=== PATIENT | male | born 1990 | race Caucasian/White ===

== ENCOUNTER 2021-08-07 09:14 | Day surgery (SDC) | payer SELFPAY ==
[~2021-08-07] VITALS: Ht 183 cm; Wt 143.0 kg
[2021-08-07] VITALS (9 sets, daily range): BP systolic 113–159; BP diastolic 76–95
[~2021-08-07 09:14] MED LIST: CEPH500C PO; CIPR500T78 PO; DOXY100C2 PO; HCA25SU PR; HYDR1TAB PO; METR500T PO; NAPR-243 PO; PRM25T PO; TRM50T PO
--- NOTE | 2021-08-07 09:41 | ED Abdominal Pain ---
General Chief Complaint: Abdominal/GI Problems Stated Complaint: VOMITING Source of Information: Patient Exam Limitations: No Limitations History of Present Illness Date Seen by Provider: Aug 07, 2021 Time Seen by Provider: 09:35 Initial Comments Patient is a 31-year-old male who presents to the emergency department today with a chief complaint of epigastric, right upper quadrant abdominal pain onset this morning when he woke up. He has been vomiting all morning. Has a feeling of fullness like he is bloated. Had a similar episode about 4 years ago however the pain did not last as long. He states at that time once he threw up he felt significantly better. No issues in the past that he is aware of with his ga llbladder. He states he is not vomiting up any blood. No recent fevers or chills. Had a normal bowel movement this morning. No problems with urination. The pain does not radiate. He states it is right at the end of his sternum and a little bit to the right and left of it. Nothing makes it any better or any worse. He did try a little Pepto this morning and vomited it up. His only medication is a daily vitamin. No allergies to medications. All other review of systems reviewed and negative except as stated Timing/Duration: 1-3 Hours Severity/Quality: Severe, Aching, Cramping, Full Location: RUQ, Epigastric Radiation: No Radiation Activities at Onset: Sleeping Associated Symptoms: Nausea/Vomiting Allergies and Home Medications Allergies Coded Allergies: No Known Allergies (Unverified Allergy, Mild, 12/12/08) Patient Home Medication List Home Medication List Reviewed: Yes Ciprofloxacin HCl (Cipro) 500 Mg Tablet, 500 MG PO BID Prescribed by: ELMER WILLIAMSON on 05/07/13 0432 Metronidazole (Flagyl 500 Mg) 500 Mg Tab, 500 MG PO BID, (Reported) Entered as Reported by: JOE CARRANZA on 05/12/13 1158 Review of Systems Review of Systems Constitutional: see HPI EENTM: No Symptoms Reported Respiratory: No Symptoms Reported Cardiovascular: No Symptoms Reported Gastrointestinal: Abdominal Pain, Nausea, Vomiting Genitourinary: No Symptoms Reported Musculoskeletal: no symptoms reported Skin: no symptoms reported All Other Systems Reviewed Negative Unless Noted: Yes Past [place]-N[place]ed-Nkbxjh Hx Past Medical History Reproductive Disorders: No Sexually Transmitted Disease: No HIV/AIDS: No Adverse Reaction/Blood Tranf: No Family Medical History Diabetes, GI Disease Physical Exam Vital Signs Vital Signs - First Documented 08/07/21 09:20 Temp 36.0 Pulse 62 Resp 18 B/P (MAP) 159/95 (116) Pulse Ox 98 O2 Delivery Room Air Capillary Refill : Height/Weight/BMI Height: '" Weight: 325lbs. oz. 147.026447lh; BMI Method:Stated General Appearance: WD/WN, mild distress HEENT: PERRL/EOMI Respiratory: lungs clear, normal breath sounds, no respiratory distress, no accessory muscle use Cardiovascular: regular rate, rhythm Gastrointestinal: soft; No distended, No guarding; tenderness (Epigastric and right upper quadrant tenderness. Positive Valenzuela sign. Slight tenderness in the left upper quadrant.); No mass, No hepatomegaly Extremities: normal range of motion, non-tender, normal inspection Neurologic/Psychiatric: alert, normal mood/affect, oriented x 3 Skin: diaphoresis, pallor Progress/Results/Core Measures Results/Orders Lab Results Laboratory Tests Test 08/07/21 09:30 Range/Units White Blood Count 9.2 4.3-11.0 10^3/uL Red Blood Count 4.58 4.30-5.52 10^6/uL Hemoglobin 13.8 13.3-17.7 g/dL Hematocrit 42 40-54 % Mean Corpuscular Volume 91 80-99 fL Mean Corpuscular Hemoglobin 30 25-34 pg Mean Corpuscular Hemoglobin Concent 33 32-36 g/dL Red Cell Distribution Width 12.4 10.0-14.5 % Platelet Count 240 130-400 10^3/uL Mean Platelet Volume 9.7 9.0-12.2 fL Immature Granulocyte % (Auto) 0 % Neutrophils (%) (Auto) 84 H 42-75 % Lymphocytes (%) (Auto) 10 L 12-44 % Monocytes (%) (Auto) 5 0-12 % Eosinophils (%) (Auto) 0 0-10 % Basophils (%) (Auto) 0 0-10 % Neutrophils # (Auto) 7.7 1.8-7.8 10^3/uL Lymphocytes # (Auto) 0.9 L 1.0-4.0 10^3/uL Monocytes # (Auto) 0.5 0.0-1.0 10^3/uL Eosinophils # (Auto) 0.0 0.0-0.3 10^3/uL Basophils # (Auto) 0.0 0.0-0.1 10^3/uL Immature Granulocyte # (Auto) 0.0 0.0-0.1 10^3/uL Sodium Level 142 135-145 MMOL/L Potassium Level 4.0 3.6-5.0 MMOL/L Chloride Level 107 98-107 MMOL/L Carbon Dioxide Level 22 21-32 MMOL/L Anion Gap 13 5-14 MMOL/L Blood Urea Nitrogen 23 H 7-18 MG/DL Creatinine 0.81 0.60-1.30 MG/DL Estimat Glomerular Filtration Rate 121 BUN/Creatinine Ratio 28 Glucose Level 139 H 70-105 MG/DL Calcium Level 8.9 8.5-10.1 MG/DL Corrected Calcium 8.9 8.5-10.1 MG/DL Total Bilirubin 0.4 0.1-1.0 MG/DL Aspartate Amino Transf (AST/SGOT) 23 5-34 U/L Alanine Aminotransferase (ALT/SGPT) 26 0-55 U/L Alkaline Phosphatase 68 40-136 U/L Total Protein 6.9 6.4-8.2 GM/DL Albumin 4.0 3.2-4.5 GM/DL Lipase 136 H 8-78 U/L My Orders Orders - JANIE HOANG MD Ed Iv/Invasive Line Start (08/07/21 09:35) Cbc With Automated Diff (08/07/21 09:35) Comprehensive Metabolic Panel (08/07/21 09:35) Lipase (08/07/21 09:35) Ondansetron Injection (Zofran Injectio (08/07/21 09:45) Ns Iv 1000 Ml (Sodium Chloride 0.9%) (08/07/21 09:45) Dicyclomine Injection (Bentyl Injection) (08/07/21 09:46) Us Gallbladder [id number] (08/07/21 10:54) Fentanyl Inj (Sublimaze Injection) (08/07/21 12:30) Medications Given in ED Current Medications Medications Dose Ordered Sig/Daily Route Start Time Stop Time Status Last Admin Dose Admin Fentanyl Citrate 50 mcg ONCE ONCE IVP 08/07/21 11:15 08/07/21 11:16 DC 08/07/21 11:15 50 MCG Fentanyl Citrate 50 mcg ONCE ONCE IVP 08/07/21 12:30 08/07/21 12:31 DC 08/07/21 12:26 50 MCG Ondansetron HCl 8 mg ONCE ONCE IVP 08/07/21 09:45 08/07/21 09:46 DC 08/07/21 09:59 8 MG Vital Signs/I&O 08/07/21 08/07/21 08/07/21 09:20 11:15 12:26 Temp 36.0 36.0 36.0 Pulse 62 Resp 18 B/P (MAP) 159/95 (116) Pulse Ox 98 O2 Delivery Room Air Progress Progress Note #1: Time: 11:57 Progress Note Case discussed with Dr Clemons; will be down to see in ED Progress Note #2: Time: 13:[address] Clemons was down to see patient. Will keep for lap Leigha. Diagnostic Imaging Diagonstic Imaging: Ultrasound Plain Films/CT/US/NM/MRI: abdomen Comments [facility], [place] NAME: [facility] REC#: [id number] PT STATUS: REG ER : 1990 PHYSICIAN: JANIE HOANG MD ADMIT DATE: 08/07/21/ER Draft Date of Exam:08/07/21 US GALLBLADDER [id number] PROCEDURE: US Gallbladder. TECHNIQUE: Multiple real-time grayscale images were obtained over the right upper quadrant in various projections. INDICATION: Right upper quadrant pain with nausea and vomiting. COMPARISON: None available. FINDINGS: The liver is normal in size and echogenicity. There is no focal hepatic mass. The main portal vein is patent with antegrade flow. There is layering sludge and a large echogenic stone within the gallbladder. No pericholecystic fluid or gallbladder wall thickening. The common bile duct measures up to 0.6 cm in diameter. No intrahepatic biliary dilation. The visualized portions of the pancreas are normal. Portions of the head and tail are obscured by overlying bowel gas. The right kidney is normal in size. No hydronephrosis, shadowing calculi, or suspicious mass lesion. IMPRESSION: 1. Cholelithiasis with positive sonographic Valenzuela's sign. These features are suggestive of acute cholecystitis. However, there is no gallbladder wall thickening or pericholecystic fluid. 2. If additional imaging is warranted, then nuclear medicine HIDA scan could be performed to assess for cystic duct patency. Dictated on workstation # [id number] Dict: 08/07/21 1158 Trans: 08/07/[address] [facility] [id number] Interpreted by: CHARLES CALZADA MD Electronically signed by: Departure Communication (Admissions) Time/Spoke to Admitting Phy: 11:[address] Clemons Impression Primary Impression: Abdominal pain Qualified Codes: R10.13 - Epigastric pain Additional Impression: Acute cholecystitis Disposition: ADMITTED INPATIENT Condition: Stable Admissions Decision to Admit Reason: Admit from ER (General) Decision to Admit/Date: Aug 07, 2021 Time/Decision to Admit Time: 12:30 Departure-Patient Inst. Referrals: NABILA MEJIA MD (PCP/Family) Primary Care Physician JANIE HOANG MD Aug 07, 2021 09:41
[2021-08-07 09:44] LABS: BASOPHILS % (AUTO) 0 % (0-10); EOSINOPHILS % (AUTO) 0 % (0-10); HEMATOCRIT 42 % (40-54); HEMOGLOBIN 13.8 g/dL (13.3-17.7); LYMPHOCYTES # (AUTO) 0.9 10^3/uL (1.0-4.0); LYMPHOCYTES % (AUTO) 10 % (12-44); MEAN CORPUSCULAR HEMOGLOBIN 30 pg (25-34); MEAN CORPUSCULAR HGB CONC 33 g/dL (32-36); MEAN CORPUSCULAR VOLUME 91 fL (80-99); MEAN PLATELET VOLUME 9.7 fL (9.0-12.2); MONOCYTES # (AUTO) 0.5 10^3/uL (0.0-1.0); MONOCYTES % (AUTO) 5 % (0-12); NEUTROPHILS # (AUTO) 7.7 10^3/uL (1.8-7.8); NEUTROPHILS % (AUTO) 84 % (42-75); PLATELET COUNT 240 10^3/uL (130-400); WHITE BLOOD COUNT 9.2 10^3/uL (4.3-11.0)
[2021-08-07] MEDS ORDERED: ONDANSETRON 4 MG/2 ML (SDV) Z0FRAN IVP ONE (09:45)
[2021-08-07] MEDS ORDERED: NS IV 1000 ML 1,000 ML IV SCH (09:45)
[2021-08-07] MEDS ORDERED: DICYCLOMINE 10 MG/ML (BENTYL) 2 ML AMP IM STA (09:46)
[2021-08-07 09:59] LABS: CALCIUM 8.9 MG/DL (8.5-10.1)
[2021-08-07 10:01] LABS: TOTAL PROTEIN 6.9 GM/DL (6.4-8.2)
[2021-08-07 10:02] LABS: BILIRUBIN,TOTAL 0.4 MG/DL (0.1-1.0)
[2021-08-07 10:04] LABS: CREATININE SERUM 0.81 MG/DL (0.60-1.30)
[2021-08-07] MEDS ORDERED: fentaNYL INJ 100 MCG/2 ML AMP IVP ONE ×5 (11:15→17:45)
--- NOTE | 2021-08-07 12:04 | Diagnostic Imaging Report ---
PROCEDURE: US Gallbladder. TECHNIQUE: Multiple real-time grayscale images were obtained over the right upper quadrant in various projections. INDICATION: Right upper quadrant pain with nausea and vomiting. COMPARISON: None available. FINDINGS: The liver is normal in size and echogenicity. There is no focal hepatic mass. The main portal vein is patent with antegrade flow. There is layering sludge and a large echogenic stone within the gallbladder. No pericholecystic fluid or gallbladder wall thickening. The common bile duct measures up to 0.6 cm in diameter. No intrahepatic biliary dilation. The visualized portions of the pancreas are normal. Portions of the head and tail are obscured by overlying bowel gas. The right kidney is normal in size. No hydronephrosis, shadowing calculi, or suspicious mass lesion. IMPRESSION: 1. Cholelithiasis with positive sonographic Valenzuela's sign. These features are suggestive of acute cholecystitis. However, there is no gallbladder wall thickening or pericholecystic fluid. 2. If additional imaging is warranted, then nuclear medicine HIDA scan could be performed to assess for cystic duct patency. Dictated by: Dictated on workstation # [id number]
[2021-08-07] MEDS ORDERED: morphine INJ 10 MG/ML 1ML (SYR OR VIAL) IVP STA (13:11)
--- NOTE | 2021-08-07 13:14 | History & Physical-Surgical ---
ALIYAH FELICIANO 08/07/21 1314: History of Present Illness History of Present Illness Reason for visit/HPI Patient is a 31 year old male who is currently at [facility] ER with compalints up RUQ abdominal pain. Patient states that the pain woke him up around 0530. He was attempted to get ready for work when he began having nausea and multiple episodes of emesis. Patient states that he has had one episode of pain like this previously a year ago, where he vomited and the pain cleared up. The pain is located along the right anterior costal margins and radiates from distal sternum to mid clavicular line. Describes the pain as a deep seated pressure and ache. Patient tried to take pepto and brian maria del carmen and the onset of the pain this morning, but was unable to hold it down. Movement and repositioning make the pain worse. States the pain has not radiated since onset and rates it a 8/10 at worst, currently a 4/10 after receiving two doses of fentanyl. Date of Admission 08/07/2021. Patient currently in ER. Date Seen by a Provider: Aug 07, 2021 Time Seen by a Provider: 13:15 I consulted on this patient on 08/07/21 13:08 Attending Physician Admitting Physician Amy Barnard MD Consult Allergies and Home Medications Allergies Coded Allergies: NKANo Known Allergies (Unverified Allergy, Mild, 12/12/08) Patient Home Medication List Home Medication List Reviewed: Yes Ciprofloxacin HCl (Cipro) 500 Mg Tablet, 500 MG PO BID Prescribed by: ELMER WILLIAMSON on 05/07/13 0432 Metronidazole (Flagyl 500 Mg) 500 Mg Tab, 500 MG PO BID, (Reported) Entered as Reported by: JOE CARRANZA on 05/12/13 1158 Past Aidowmj-Zjthex-Rlvong Hx Patient Social History Marrital Status: Employed/Student: employed ([employer]) Tobacco Use?: Yes (chewing tobacco) Smoking Status: Never a Smoker Smokeless type used: Chew (16 years) Smokeless Tobacco Frequency: Current Everyday User Use of E-Cig and/or Vaping dev: No Substance use?: No Alcohol Use?: No Immunizations Up To Date Second COVID19 Vaccination Silvano: 05/2021 Seasonal Allergies Seasonal Allergies: Yes Current Status Communicates: Verbally Preferred Spoken Language: Belarusian Is interpretation needed?: No Implanted or Applied Medical D: None Past Medical History Currently Using CPAP: No Currently Using BIPAP: No Sexually Transmitted Disease: No HIV/AIDS: No Adverse Reaction/Blood Tranf: No Family Medical History Heart Disease (Father - CHF w/ reduced EF), Diabetes, GI Disease (Father- Cholecystitis w/ cholecystectomy), Hypertension, Lung Disease (Father - Emphysema ) Review of Systems Constitutional: No chills; diaphoresis; No fever, No weakness EENTM: No blurred vision, No double vision Respiratory: No cough, No hemoptysis, No short of breath Cardiovascular: No chest pain, No palpitations Gastrointestinal: RUQ, abdominal pain (RUQ), nausea, vomiting Psychiatric/Neurological: Denies Headache, Denies Weakness Physical Exam Vital Signs Vital Signs - First Documented 08/07/21 09:20 Temp 36.0 Pulse 62 Resp 18 B/P (MAP) 159/95 (116) Pulse Ox 98 O2 Delivery Room Air Capillary Refill : Less Than 3 Seconds Height, Weight, BMI Height: '" Weight: 325lbs. oz. 147.152145tc; 42.00 BMI Method:Stated General Appearance: WD/WN, Anxious, Mild Distress Neck: Supple Respiratory: Lungs Clear, Normal Breath Sounds, No Accessory Muscle Use, No Respiratory Distress Cardiovascular: No Gallop, No Murmur, Normal Peripheral Pulses, Bradycardia (49-56bpm while in the room; regular rhythm) Gastrointestinal: Normal Bowel Sounds, Soft; No Distended; Tenderness (RUQ) Rectal: Deferred Extremity: Non Tender, No Pedal Edema Neurologic/Psychiatric: Alert, Oriented x3, Normal Mood/Affect Skin: Normal Color, Warm/Dry Data Review Labs Laboratory Tests 08/07/21 09:30: White Blood Count 9.2, Red Blood Count 4.58, Hemoglobin 13.8, Hematocrit 42, Mean Corpuscular Volume 91, Mean Corpuscular Hemoglobin 30, Mean Corpuscular Hemoglobin Concent 33, Red Cell Distribution Width 12.4, Platelet Count 240, Mean Platelet Volume 9.7, Immature Granulocyte % (Auto) 0, Neutrophils (%) (Auto) 84H, Lymphocytes (%) (Auto) 10L, Monocytes (%) (Auto) 5, Eosinophils (%) (Auto) 0, Basophils (%) (Auto) 0, Neutrophils # (Auto) 7.7, Lymphocytes # (Auto) 0.9L, Monocytes # (Auto) 0.5, Eosinophils # (Auto) 0.0, Basophils # (Auto) 0.0, Immature Granulocyte # (Auto) 0.0, Sodium Level 142, Potassium Level 4.0, Chloride Level 107, Carbon Dioxide Level 22, Anion Gap 13, Blood Urea Nitrogen 23H, Creatinine 0.81, Estimat Glomerular Filtration Rate 121, BUN/Creatinine Ratio 28, Glucose Level 139H, Calcium Level 8.9, Corrected Calcium 8.9, Total Bilirubin 0.4, Aspartate Amino Transf (AST/SGOT) 23, Alanine Aminotransferase (ALT/SGPT) 26, Alkaline Phosphatase 68, Total Protein 6.9, Albumin 4.0, Lipase 136H Assessment/Plan Assessment/Plan Admission Diagonsis Cholelithiasis Abdominal pain suspicious for acute cholecystits Admission Status: Other (Same Day Surgery) Assessment/Plan RUQ Abdominal pain intractable to pain medication Cholelithiasis Suspicion of acute cholecystitis Elevated lipase possible pancreatitis US shows cholelithiasis and sludge. Dr. Blankenship discussed three options, doing nothing, conservative treatment with medication, or surgery. After discussion with patient, decision was made to wait and see if patient's pain came back after dose of fentanyl. As I was leaving the room after examining the patient he stated that his pain was starting to come back and that he would like to go forward with surgery if Dr. Blankenship thought that was best. DIANA BLANKENSHPI DO 08/07/21 9228: History of Present Illness History of Present Illness Reason for visit/HPI Surgery asked to consult regarding RUQ pain. HPI per ED: Patient is a 31-year-old male who presents to the emergency department today with a chief complaint of epigastric, right upper quadrant abdominal pain onset this morning when he woke up. He has been vomiting all morning. Has a feeling of fullness like he is bloated. Had a similar episode about 4 years ago however the pain did not last as long. He states at that time once he threw up he felt significantly better. No issues in the past that he is aware of with his gallbladder. He states he is not vomiting up any blood. No recent fevers or chills. Had a normal bowel movement this morning. No problems with urination. The pain does not radiate. He states it is right at the end of his sternum and a little bit to the right and left of it. Nothing makes it any better or any worse. He did try a little Pepto this morning and vomited it up. His only medication is a daily vitamin. When I saw the pt he had just gotten second dose of pain medication which took some pain away but it was still there. He thinks he only had pain like this one time, about a year ago. Time Seen by a Provider: 12:33 Allergies and Home Medications Allergies Coded Allergies: JULIAANo Known Allergies (Unverified Allergy, Mild, 12/12/08) Patient Home Medication List Home Medication List Reviewed: Yes Ciprofloxacin HCl (Cipro) 500 Mg Tablet, 500 MG PO BID Prescribed by: ELMER WILLIAMSON on 05/07/13 0432 Metronidazole (Flagyl 500 Mg) 500 Mg Tab, 500 MG PO BID, (Reported) Entered as Reported by: JOE CARRANZA on 05/12/13 1158 Past Wtkwsmq-Uoqpbu-Wzesrs Hx Patient Social History Marrital Status: Employed/Student: employed ([employer]) Tobacco Use?: Yes (chewing tobacco) Smokeless type used: Chew (16 years) Smokeless Tobacco Frequency: Current Everyday User Use of E-Cig and/or Vaping dev: No Current Status Implanted or Applied Medical D: None Past Medical History Surgeries: Abdominal (denies) Currently Using CPAP: No Currently Using BIPAP: No High Cholesterol (denies), Hypertension (denies) Gall Bladder Disease Family Medical History Heart Disease (Father - CHF w/ reduced EF), Diabetes, GI Disease (Father- Cholecystitis w/ cholecystectomy), Hypertension, Lung Disease (Father - Emphysema ) Review of Systems Constitutional: No chills; diaphoresis; No fever, No weakness EENTM: No blurred vision, No double vision Respiratory: No cough, No hemoptysis, No short of breath Cardiovascular: No chest pain, No palpitations Gastrointestinal: RUQ, abdominal pain (RUQ); No jaundice; nausea, vomiting Genitourinary: No dysuria, No frequency, No hematuria Musculoskeletal: No joint pain, No joint swelling, No muscle pain, No muscle stiffness Skin: No change in color, No change in hair/nails Psychiatric/Neurological: Denies Anxiety, Denies Depressed, Denies Headache, Denies Weakness Physical Exam General Appearance: Anxious, Mild Distress, Obese Eyes: Bilateral Eye PERRL, Bilateral Eye EOMI HEENT: Pharynx Normal, Moist Mucous Membranes; No Scleral Icterus (L), No Scleral Icterus (R) Neck: Supple; No Thyromegaly Respiratory: Lungs Clear, Normal Breath Sounds, No Accessory Muscle Use, No Respiratory Distress Cardiovascular: Regular Rate, Rhythm, No Gallop, No Murmur Gastrointestinal: Normal Bowel Sounds, Soft; No Distended; Tenderness (RUQ) Rectal: Deferred Extremity: Non Tender, No Calf Tenderness, No Pedal Edema Neurologic/Psychiatric: Alert, Oriented x3, No Motor/Sensory Deficits, Normal Mood/Affect, german instructor II-XII Norm as Tested Skin: Normal Color, Warm/Dry Lymphatic: No Adenopathy (neck, axilla or groin) Data Review Radiology Date of Exam:08/07/21 US GALLBLADDER [id number] PROCEDURE: US Gallbladder. TECHNIQUE: Multiple real-time grayscale images were obtained over the right upper quadrant in various projections. INDICATION: Right upper quadrant pain with nausea and vomiting. COMPARISON: None available. FINDINGS: The liver is normal in size and echogenicity. There is no focal hepatic mass. The main portal vein is patent with antegrade flow. There is layering sludge and a large echogenic stone within the gallbladder. No pericholecystic fluid or gallbladder wall thickening. The common bile duct measures up to 0.6 cm in diameter. No intrahepatic biliary dilation. The visualized portions of the pancreas are normal. Portions of the head and tail are obscured by overlying bowel gas. The right kidney is normal in size. No hydronephrosis, shadowing calculi, or suspicious mass lesion. IMPRESSION: 1. Cholelithiasis with positive sonographic Valenzuela's sign. These features are suggestive of acute cholecystitis. However, there is no gallbladder wall thickening or pericholecystic fluid. 2. If additional imaging is warranted, then nuclear medicine HIDA scan could be performed to assess for cystic duct patency. Dictated by: Dictated on workstation # [id number] Dict: 08/07/21 1158 Trans: 08/07/21 1225 [facility] [id number] Interpreted by: CHARLES CALZADA MD Electronically signed by: CHARLES CALZADA MD 08/07/21 6637 Assessment/Plan Assessment/Plan Admission Diagonsis RUQ pain probably secondary to Acute Cholecystitis Cholelithiasis Possible pancreatitis Morbid Obesity Admission Status: Observation (Same Day Surgery) Assessment/Plan RUQ pain probably secondary to Acute Cholecystitis Cholelithiasis Possible pancreatitis Morbid Obesity US shows cholelithiasis and sludge. I discussed three options with pt; 1) doing nothing but conservative treatment 2) treat with pain medication and if he improves could consider outpt surgery or 3) surgery today. After discussion with patient, decision was made to wait and see if patient's pain came back after dose of fentanyl. Unfortunately patient's pain came back and he stated that he would like to go forward with surgery. I did tell him that I can't promise his pain will be completely gone, but because of the intractable pain it is probably the best option. I went over risks and complications, not limited to pain, bleeding, infection, scar, damage to bowel or bile duct and need for further procedure. All questions answered to his satisfaction. Supervisory-Addendum Brief Verification & Attestation Participated in pt care: history, MDM, physical Personally performed: exam, history, MDM, supervision of care Care discussed with: Medical Student Procedures: n/a Verification and Attestation of Medical Student E/M Service A medical student performed and documented this service. I then reviewed and verified all information documented by the medical student and made modifications to such information, when appropriate. I personally performed a physical exam, medical decision making and then discussed any differences between the notes and made revisions as necessary to create one note. Diana Blankenship , 08/07/21 , 16:14 ALIYAH FELICIANO Aug 07, 2021 13:14 DIANA BLANKENSHIP DO Aug 07, 2021 16:09
[2021-08-07] MEDS ORDERED: LACTATED RINGERS 1,000 ML IV SCH (14:00)
[2021-08-07] MEDS ORDERED: LIDOCAINE/EPI 2% 1:100,00 (XYLOCAINE) 20 ML VIAL ONE (14:06)
[2021-08-07] MEDS: LACTATED RINGERS 1,000 ML IV PRN ×2 (14:19→17:00)
[2021-08-07] MEDS ORDERED: SEVOFLURANE (ULTANE) 15 ML INHAL SOLN ONE (14:24)
[2021-08-07] MEDS ORDERED: proPOfol 200 MG/20 ML (DIPRIVAN) VIAL IV ONE (14:24)
[2021-08-07] MEDS ORDERED: LIDOCAINE PF 2% 5 ML (XYLOCAINE) VIAL ONE (14:24)
[2021-08-07] MEDS ORDERED: ROCURONIUM 10 MG/ML 5 ML SYRINGE IV ONE ×3 (14:24→17:00)
[2021-08-07] MEDS ORDERED: ONDANSETRON 4 MG/2 ML (SDV) Z0FRAN ONE (14:24)
[2021-08-07] MEDS ORDERED: fentaNYL INJ 100 MCG/2 ML AMP ONE ×2 (14:26→15:15)
[2021-08-07] MEDS ORDERED: MIDAZOLAM 2 MG/2 ML (VERSED) VIAL ONE (14:28)
[2021-08-07] MEDS ORDERED: fentaNYL INJ 100 MCG/2 ML AMP IV ONE (14:45)
[2021-08-07] MEDS ORDERED: IOPAMIDOL 61% 30 ML (ISOVUE 300) VIAL DUCT ONE (15:30)
[2021-08-07] MEDS ORDERED: ceFAZolin 2 GM IV Premixed 50 ML IV ONE (15:45)
[2021-08-07] MEDS ORDERED: NEOSTIGMINE 3 MG/3 ML VIAL ONE (17:05)
[2021-08-07] MEDS ORDERED: GLYCOPYRROLATE 0.2 MG/ML (ROBINUL) 2 ML VIAL ONE (17:05)
--- NOTE | 2021-08-07 17:14 | Diagnostic Imaging Report ---
Result: History: 31 years-old Male with lap cholecystectomy Comparison: None. Technique: 77 intraoperative fluoroscopic images of the abdomen in the frontal projection, including a cine clip. Fluoroscopic Time: 14 seconds Findings: Intraoperative fluoroscopic images were obtained during cholecystectomy. Images demonstrate contrast in the common bile duct with no significant dilatation or filling defects seen. There is spillage of contrast. This appears to be due to displacement of the cannula. Impression: Fluoroscopic intraoperative images obtained during cholecystectomy. There is spillage of contrast which appears to be due to displacement of the cannula. Dictated by: Dictated on workstation # [id number]
--- NOTE | 2021-08-07 17:16 | Progress Note-Post Operative ---
Post-Operative Progess Note Surgeon (s)/Strap Folding Machine Operator (s) Surgeon DIANA BLANKENSHIP DO Strap Folding Machine Operator: Caprice Pre-Operative Diagnosis RUQ pain probable Acute Cholecystitis with Cholelithiasis Post-Operative Diagnosis Acute Cholecystitis with Cholelithiasis Procedure & Operative Findings Date of Procedure 08/07/21 Procedure Performed/Findings PROCEDURE: Laparoscopic cholecystectomy with intraoperative cholangiogram. COMPLICATIONS: None. PROCEDURE: The patient was taken to the operating suite and was prepped and draped in sterile fashion. A surgical pause was performed. Just superior to the umbilicus, a 12 mm incision was made. Dissection was taken down to the fascia, which was then scored and grasped with a Roma and the abdomen was then entered. A 0 Vicryl suture was placed in a [id number] fashion and a Bourgeois trocar was placed and secured. Pneumoperitoneum was achieved. A 5mm trochar place in the subxyphoid and 2 in the right upper quadrant. The gallbladder was noted to be very distended and sticking up. It appeared erythematous and even had some bile staining down at Hartmans pouch. It was grasped at the fundus and elevated in the superior direction. Then grasped at Arechiga's pouch and pulled in the infero-lateral direction. Large stone was seen impacted at the neck of gallbladder. The cystic duct and cystic artery were then dissected out. Clip was placed on the distal portion of the cystic duct which was then partially transected. An arrow catheter was inserted into the duct. The cholangiogram was then performed. No filing defects and contrast made its way into the duodenum. Catheter removed. Clips were placed on proximal portion of the cystic duct and then the duct was then transected. Clips were placed along the proximal and distal portion of the cystic artery which was then transected. Hook cautery was used to dissect the gallbladder from the gallbladder fossa achieving hemostasis. Did have to place some surgicel at the site of clips it appeared as if some scant bleeding was coming from the fat; stopped at the end. The gallbladder was placed in an Endobag and removed through the 12 mm trocar site. The abdomen was then reinspected. Copious amounts of irrigation were used to irrigate the abdomen and there were no signs of active bleeding. Hemostasis had been achieved. The 12 mm fascial defect was then closed with 0 Vicryl suture that had been placed in a [id number] fashion. The abdomen was then desufflated, the trocars were removed. The abdomen was then washed and dried. The skin was then closed using 4-0 Monocryl in a subcuticular fashion. The abdomen was washed and dried and Skin Affix was placed over incisions. Patient tolerated the procedure well without any complications and was taken to the recovery room in stable condition. Dr. Vasques helped to make incisions, close incisions, identify anatomy, and hold anatomy out of the way. This was a difficult gallbladder and would have taken much longer without Dr. Vasques's assistance. Anesthesia Type GET Estimated Blood Loss Estimated blood loss (mL): scant Specimens/Packing Specimens Removed GB and contents DIANA BLANKENSHIP DO Aug 07, 2021 17:16
[2021-08-07] MEDS ORDERED: ACHYD1T PO (17:17)
--- NOTE | 2021-08-07 17:19 | Discharge Inst-Surgical ---
Discharge Inst-Surgical Depart Medication/Instructions New, Converted or Re-Newed RX: Transmitted to Pharmacy Patient Instructions Follow up Appt: Make appointment for 1 week. [phone] Instructions: No lifting greater than 20 pounds. No strenuous activity. May shower in 24 hours, no tub bath or soaking. Use incentive spirometer at home as directed. No Smoking Skin/Wound Care: May remove bandages in am. You need to leave the Dermabond on incision it will fall off on it's own. Symptoms to Report: Appetite Changes, Extremity Discoloration, Numbness/Tingling, Swelling Increased, Bleeding Excessive, Eyesight Changes, Pain Increased, Urine Color Change, Constipation(Persistent), Fever over 101 degree F, Pain/Pressure in chest, Urinating Difficulty, Cough Up/Vomit Blood, Heart Beat Irreg/Pounding, Pain/Pressure in jaw, Cramps in feet or legs, Lightheadedness, Pain/Pressure in shoulder, Diarrhea(Persistent), Memory Changes Suddenly, Questions/Concerns, Weight gain consecutive days, Dizziness/Fainting, Nausea/Vomiting, Shortness of Breath, Weight gain over 2 pounds If questions or concerns contact your physician Or seek help at emergency department. Activity Activity as Tolerated: Yes Activity Instructions: Avoid Stress to Incision Driving Instructions: No Driving/Refer to Diet Discharge Diet: Avoid Fatty Foods, Low Fat/Low Cholesterol Diet After 24 Hours: Clear Liquid if Nauseous If Any Problems/Questions/Issu: Contact Your Physician, Go to Emergency Room Skin/Wound Care Infection Signs and Symptoms: Increased Redness, Foul Odor of Wound, Increased Drainage, Skin Itchy or Has a Rash, Increased Swelling, Temperature Above 101 F Wound Care Comment: heating pad to shoulder or neck tonight for pain Bathing Instructions: Shower Stitches/[place]/Dermabond Dis: Dermabond Ice Pack: Ice On and Off Site DIANA BLANKENSHIP DO Aug 07, 2021 17:19
[2021-08-07] MEDS ORDERED: PROMETHAZINE INJ 25 MG/ML (PHENERGAN) AMP IVP ONE (17:45)
[2021-08-07] MEDS ORDERED: ONDANSETRON 4 MG/2 ML (SDV) Z0FRAN IVP PRN (17:45)
[2021-08-07] MEDS ORDERED: MEPERIDINE (DEMEROL) INJ 50 MG/ML IVP ONE (17:45)
[2021-08-07] MEDS ORDERED: HYDROmorphone 2 MG/ML VIAL (DILAUDID) IV ONE (17:45)
[2021-08-07] MEDS ORDERED: DESFLURANE (SUPRANE) 15 ML INHAL SOLN ONE (17:46)
[2021-08-08 00:18] VITALS: BP 196/88
[2021-08-08 01:24] VITALS: BP 119/71
[2021-08-08 03:58] VITALS: BP 128/71
[2021-08-08 07:58] VITALS: BP 121/78
--- NOTE | 2021-08-08 08:38 | Progress Note - Surgery ---
ALIYAH FELICIANO 08/08/21 0837: Subjective Date Seen by a Provider: Aug 08, 2021 Time Seen by a Provider: 08:29 Subjective/Events-last exam Patient resting in bed. States he is in some pain but feels much better than he did yesterday. Was having some shoulder pain, explained this is probably from th e surgery. Patient had questions about foods he should avoid in the future. Review of Systems General: Chills (last night, improved ); No Night Sweats HEENT: No Head Aches, No Visual Changes Pulmonary: No Dyspnea, No Cough Cardiovascular: No: Chest Pain, Palpitations Gastrointestinal: Abdominal Pain; No: Nausea, Vomiting Objective Exam Vital Signs Date Time Temp Pulse Resp B/P (MAP) Pulse Ox O2 Delivery O2 Flow Rate FiO2 08/08/21 07:58 37.1 78 18 121/78 (92) 94 Room Air 08/08/21 03:58 37.0 56 19 128/71 (90) 98 Room Air 08/08/21 01:24 73 20 119/71 (87) 98 Room Air 08/08/21 00:18 37.7 83 20 196/88 (124) 94 Room Air 08/08/21 00:04 96 Room Air 08/07/21 20:07 37.8 59 20 140/85 (103) 95 Room Air 08/07/21 18:30 37.8 61 21 158/80 (106) 95 Room Air 08/07/21 18:20 36.6 18 145/86 (105) 95 Room Air 08/07/21 18:20 Room Air 08/07/21 18:12 Room Air 08/07/21 18:10 18 159/94 (115) 95 Room Air 08/07/21 18:06 Room Air 08/07/21 18:00 18 154/82 (106) 99 OxyMask 3 08/07/21 17:59 OxyMask 3 08/07/21 17:57 OxyMask 6 08/07/21 17:54 OxyMask 6 08/07/21 17:50 18 149/81 (103) 100 Face Tent 10 08/07/21 17:45 20 150/80 (103) 99 OxyMask 6 08/07/21 17:40 OxyMask 6 08/07/21 17:35 20 153/76 (101) 99 OxyMask 6 08/07/21 17:27 37.4 20 113/95 (101) 100 OxyMask 6 08/07/21 17:27 OxyMask 6 08/07/21 14:30 36.6 63 18 122/70 98 Room Air 08/07/21 13:39 36.0 08/07/21 12:26 36.0 08/07/21 11:15 36.0 08/07/21 09:20 36.0 62 18 159/95 (116) 98 Room Air I & O 08/08/21 07:00 Intake Total 2610 ml Output Total 500 ml Balance 2110 ml Capillary Refill : Less Than 3 Seconds General Appearance: No Apparent Distress, Obese HEENT: No Scleral Icterus (L), No Scleral Icterus (R) Neck: No Thyromegaly Respiratory: Lungs Clear, Normal Breath Sounds, No Accessory Muscle Use, No Respiratory Distress Cardiovascular: Regular Rate, Rhythm, Normal Peripheral Pulses Gastrointestinal: soft, abnormal bowel sounds (diminished; s/p lap kale), tenderness (mild diffuse; s/p lap kale) Extremity: Non Tender, No Calf Tenderness, No Pedal Edema Neurologic/Psychiatric: Alert, Oriented x3, Normal Mood/Affect Skin: Normal Color, Warm/Dry Results Lab Laboratory Tests 08/07/21 09:30: White Blood Count 9.2, Red Blood Count 4.58, Hemoglobin 13.8, Hematocrit 42, Mean Corpuscular Volume 91, Mean Corpuscular Hemoglobin 30, Mean Corpuscular Hemoglobin Concent 33, Red Cell Distribution Width 12.4, Platelet Count 240, Mean Platelet Volume 9.7, Immature Granulocyte % (Auto) 0, Neutrophils (%) (Auto) 84H, Lymphocytes (%) (Auto) 10L, Monocytes (%) (Auto) 5, Eosinophils (%) (Auto) 0, Basophils (%) (Auto) 0, Neutrophils # (Auto) 7.7, Lymphocytes # (Auto) 0.9L, Monocytes # (Auto) 0.5, Eosinophils # (Auto) 0.0, Basophils # (Auto) 0.0, Immature Granulocyte # (Auto) 0.0, Sodium Level 142, Potassium Level 4.0, Chloride Level 107, Carbon Dioxide Level 22, Anion Gap 13, Blood Urea Nitrogen 23H, Creatinine 0.81, Estimat Glomerular Filtration Rate 121, BUN/Creatinine Ratio 28, Glucose Level 139H, Calcium Level 8.9, Corrected Calcium 8.9, Total Bilirubin 0.4, Aspartate Amino Transf (AST/SGOT) 23, Alanine Aminotransferase (ALT/SGPT) 26, Alkaline Phosphatase 68, Total Protein 6.9, Albumin 4.0, Lipase 136H Assessment/Plan Assessment/Plan Assessment/Plan S/p laparoscopic cholecystectomy Acute cholecystitis - resolved Cholelithiasis - resolved Morbid Obesity Pt s/p laparoscopic cholecystectomy. Decided to stay last night because all of the pharmacies were closed and he was having some break through pain. Patient states his pain is currently well controlled with medication. Patient was waiting on his father to get to the hospital so that he could go home. DIANA BLANKENSHIP DO 08/08/21 1134: Supervisory-Addendum Brief Verification & Attestation Participated in pt care: other Personally performed: other Care discussed with: Medical Student Procedures: n/a Pt left before I saw him ALIYAH FELICIANO Aug 08, 2021 08:37 DIANA BLANKENSHIP DO Aug 08, 2021 11:34
[2021-08-08 08:40] VITALS: BP 121/78
--- NOTE | 2021-08-08 11:44 | Anesthesia-General Post-Op ---
General Patient Condition Mental Status/LOC: Same as Preop Cardiovascular: Satisfactory Nausea/Vomiting: Absent Respiratory: Satisfactory Pain: Controlled Complications: Absent Post Op Complications Complications None Follow Up Care/Instructions Patient Instructions None needed. Anesthesia/Patient Condition Patient Condition Patient is doing well, no complaints, stable vital signs, no apparent adverse anesthesia problems. No complications reported per nursing. JONO HERMOSILLO CRNA Aug 08, 2021 11:44
== END 2021-08-08 08:40 | disposition home or self-care (01) ==
LOC: EDUNIT# 09:14 → ER 09:16 → SDC 15:07 → 4TH 18:22 → SDC 08-08 08:40
PROVIDERS: ATTEND Surgery
DX: K80.12 Calculus of gallbladder with acute and chronic cholecystitis without obstruction (principal); K82.8 Other specified diseases of gallbladder; F17.220 Nicotine dependence, chewing tobacco, uncomplicated; E66.01 Morbid (severe) obesity due to excess calories; Z68.41 Body mass index [BMI] 40.0-44.9, adult
CPT/HCPCS: 36415; 76000; 76705; 80053; 83690; 85025; 87081

== ENCOUNTER 2023-04-09 03:39 | Emergency (ER) | payer BC ==
[~2023-04-09] VITALS: Ht 193 cm; Wt 172.0 kg
[~2023-04-09 03:39] MED LIST changes: +ACHYD1T PO
[2023-04-09 03:55] VITALS: BP 135/85
--- NOTE | 2023-04-09 04:32 | ED Abdominal Pain ---
General Chief Complaint: Abdominal/GI Problems Stated Complaint: POSS FOOD POISONING Nursing Triage Note: Pt presents with c/o N/V/D since approx 2330 on 04/08. Pt states he can not keep anything down, he at [employer] at 1800. Source of Information: Patient Exam Limitations: No Limitations History of Present Illness Date Seen by Provider: Apr 09, 2023 Time Seen by Provider: 04:31 Initial Comments Patient is a 33-year-old male, super morbid obesity who presents to the emergency department chief complaint nausea, vomiting and diarrhea onset around 11 PM tonight. He states he had some [place] food at approximately 5 PM last night from [employer]. He states nobody else ate the same food. He woke up at 11, 1130 with the nausea and diarrhea. He has epigastric discomfort. He states he has a "metallic taste" in his mouth when he vomits. He feels a little lightheaded and dehydrated. Dry mouth. No blood that he has seen in his vomit or diarrhea. He has had prior cholecystectomy. Takes no daily medications. Has tried sips of water without being able to hold it down. Timing/Duration: 4-6 Hours Severity/Quality: Severe Location: Epigastric Radiation: No Radiation Activities at Onset: Sleeping Associated Symptoms: Nausea/Vomiting Allergies and Home Medications Allergies Coded Allergies: NKANo Known Allergies (Unverified Allergy, Mild, 12/12/08) Patient Home Medication List Home Medication List Reviewed: Yes Ciprofloxacin HCl (Cipro) 500 Mg Tablet, 500 MG PO BID Prescribed by: ELMER WILLIAMSON on 05/07/13 0432 Hydrocodone Bit/Acetaminophen (HYDROcodone/APAP 10/325 TABLET) 1 Ea Tab, 1 TAB PO Q6H Prescribed by: DIANA BLANKENSHIP on 08/07/21 1718 Metronidazole (Flagyl 500 Mg) 500 Mg Tab, 500 MG PO BID, (Reported) Entered as Reported by: JOE CARRANZA on 05/12/13 1158 Review of Systems Review of Systems Constitutional: see HPI Gastrointestinal: Nausea, Vomiting Genitourinary: No Symptoms Reported Musculoskeletal: no symptoms reported Skin: no symptoms reported Psychiatric/Neurological: No Symptoms Reported Past Cuebsbq-Tgggtn-Pssshc Hx Immunizations Up To Date First/Initial COVID19 Vaccinat: 05/2021 Second COVID19 Vaccination Silvano: 05/2021 Third COVID19 Vaccination Date: 05/2021 Seasonal Allergies Seasonal Allergies: Yes Past Medical History Abdominal Currently Using CPAP: No Currently Using BIPAP: No High Cholesterol, Hypertension Reproductive Disorders: No Sexually Transmitted Disease: No HIV/AIDS: No Gall Bladder Disease Adverse Reaction/Blood Tranf: No Family Medical History Heart Disease, Diabetes, GI Disease, Hypertension, Lung Disease Physical Exam Vital Signs Vital Signs - First Documented 04/09/23 03:55 Temp 37.5 Pulse 122 Resp 16 B/P (MAP) 135/85 (102) Capillary Refill : Less Than 3 Seconds Height/Weight/BMI Height: '" Weight: 325lbs. oz. [phone]; 46.00 BMI Method:Stated General Appearance: WD/WN, no apparent distress HEENT: normal ENT inspection Respiratory: lungs clear, normal breath sounds, no respiratory distress, no accessory muscle use Cardiovascular: regular rate, rhythm Gastrointestinal: soft, abnormal bowel sounds (Hypoactive bowel sounds), tenderness (Epigastric tenderness) Extremities: normal range of motion, normal inspection Neurologic/Psychiatric: alert, normal mood/affect, oriented x 3 Skin: normal color, warm/dry Progress/Results/Core Measures Results/Orders Lab Results Laboratory Tests Test 04/09/23 04:05 Range/Units Sodium Level 136 135-145 MMOL/L Potassium Level 3.8 3.6-5.0 MMOL/L Chloride Level 104 98-107 MMOL/L Carbon Dioxide Level 21 21-32 MMOL/L Anion Gap 11 5-14 MMOL/L Blood Urea Nitrogen 18 7-18 MG/DL Creatinine 0.83 0.60-1.30 MG/DL Estimat Glomerular Filtration Rate 119 BUN/Creatinine Ratio 22 Glucose Level 125 H 70-105 MG/DL Calcium Level 9.0 8.5-10.1 MG/DL My Orders Orders - JANIE HOANG MD Ed Iv/Invasive Line Start (04/09/23 04:32) Ed Iv/Invasive Line Start (04/09/23 04:36) Basic Metabolic Panel (04/09/23 04:36) Lactated Ringers 1,000 Ml (Lactated Ring (04/09/23 04:45) Ondansetron Injection (Ondansetron Inj (04/09/23 04:45) Pantoprazole Injection (Pantoprazole Inj (04/09/23 04:45) Medications Given in ED Current Medications Medications Dose Ordered Sig/Daily Route Start Time Stop Time Status Last Admin Dose Admin Ondansetron HCl 8 mg ONCE ONCE IVP 04/09/23 04:45 04/09/23 04:46 DC 04/09/23 05:10 8 MG Pantoprazole 40 mg ONCE ONCE IV 04/09/23 04:45 04/09/23 04:46 DC 04/09/23 05:11 40 MG Vital Signs/I&O 04/09/23 03:55 Temp 37.5 Pulse 122 Resp 16 B/P (MAP) 135/85 (102) Blood Pressure Mean: 102 Progress Progress Note : Time: 05:43 Progress Note Patient seen and evaluated by me. Evaluation today includes history and physical exam, basic metabolic panel. Pertinent physical exam findings, super morbid obese gentleman in mild distress due to nausea, vomiting. Heart is regular, tachycardic in the 120's, lungs are clear however diminished breath sounds due to size. Abdomen is soft, tender to palpation and that palpation causes increased nausea and dry heaving. No involuntary guarding or rebound tenderness is appreciated. Hypoactive bowel sounds. Differential diagnosis includes acute gastroenteritis, dehydration, hypokalemia Patient is treated in the emergency department with a liter of lactated Ringer's, 8 mg of Zofran IV. Labs independently reviewed and interpreted by me. His basic metabolic panel is normal, no electrolyte abnormalities. He has improvement with medications. Will be sent home with a prescription for ondansetron. No concerning findings on physical exam for acute surgical process. Return precautions provided in both verbal and written format. All questions are sought and answered. Departure Impression Primary Impression: Acute gastroenteritis Disposition: 01 HOME, SELF-CARE Condition: Improved Departure-Patient Inst. Decision time for Depature: 05:41 Referrals: NABILA MEJIA MD (PCP/Family) Primary Care Physician Patient Instructions: Viral gastroenteritis in adults Add. Discharge Instructions: Follow a clear liquid diet for most of the morning this morning. You can slowly advance as tolerated throughout the day. Take the nausea medication, ondansetron, orally disintegrating tablets, 8 mg 1 every 6-8 hours as needed for nausea. I would strongly recommend you take an wqlc-[id number]-[id number] acid manager protein over the course of the next week. Generic Prilosec or Pepcid once daily. If you develop any worsening symptoms, fever, abdominal pain or persistent vomiting that is not improved with the medications, return to the emergency room for reevaluation. Please follow-up with your primary care provider. Scripts Ondansetron (Ondansetron Odt) 8 Mg Tab.rapdis 8 MG SL Q8H PRN for NAUSEA/VOMITING, #12 TAB Prov: JANIE HOANG MD 04/09/23 Copy Copies To 1: NABILA MEJIA MD, KATHRYN M MD Apr 09, 2023 04:32
[2023-04-09] MEDS ORDERED: PANTOPRAZOLE INJECTION 40 MG VIAL IV ONE (04:45)
[2023-04-09] MEDS ORDERED: LACTATED RINGERS 1,000 ML 1,000 ML IV SCH (04:45)
[2023-04-09] MEDS ORDERED: ONDANSETRON INJECTION 4 MG/2 ML (SDV) IVP ONE (04:45)
[2023-04-09 04:53] LABS: POTASSIUM 3.8 MMOL/L (3.6-5.0)
[2023-04-09 04:58] LABS: CREATININE SERUM 0.83 MG/DL (0.60-1.30)
[2023-04-09] MEDS ORDERED: ONDA8TAB13 SL (05:43)
== END 2023-04-09 06:08 | disposition home or self-care (01) ==
LOC: EDUNIT# 03:39 → ER 03:43
DX: K52.9 Noninfective gastroenteritis and colitis, unspecified (principal); E66.01 Morbid (severe) obesity due to excess calories; Z68.42 Body mass index [BMI] 45.0-49.9, adult
CPT/HCPCS: 36415; 80048